=== PATIENT | male | born 1945 ===

== ENCOUNTER 2017-07-06 15:00 | Outpatient (CLI) | payer OTHER ==
[~2017-07-06] VITALS: Ht 170.2 cm; Wt 77.1 kg
== END 2017-07-06 15:15 | disposition home or self-care (01) ==
LOC: OFIC 805 15:00
DX: H61.23 Impacted cerumen, bilateral (principal); R04.0 Epistaxis; H90.3 Sensorineural hearing loss, bilateral

== ENCOUNTER 2017-09-10 13:01 | Outpatient (CLI) | payer OTHER ==
[~2017-09-10] VITALS: Ht 152.4 cm; Wt 77.1 kg
== END 2017-09-10 13:15 | disposition home or self-care (01) ==
LOC: OFIC 805 13:01
DX: H61.23 Impacted cerumen, bilateral (principal)